=== PATIENT | female | born 1980 | race Caucasian/White ===

== ENCOUNTER 2017-07-08 14:46 | Emergency (ER) | payer OTHER, MEDICAID ==
[2017-07-08 15:10] VITALS: BP 113/73
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
== END 2017-07-08 15:50 | disposition home or self-care (01) ==
LOC: ED 14:46
DX: S39.92XA Unspecified injury of lower back, initial encounter (principal); V89.2XXA Person injured in unspecified motor-vehicle accident, traffic, initial encounter
CPT/HCPCS: 99283